=== PATIENT | female | born 1960 | race Caucasian/White ===

== ENCOUNTER 2021-04-24 18:05 | Inpatient (IN) ==
[2021-04-24 18:47] LABS: Amorphous Sediment,Urine Few per hpf (None-Few); Bilirubin,Urine Negative (Negative); Blood,Urine Negative (Negative); Clarity,Urine Clear (Clear); Color,Urine Light-Yellow (Yellow); Glucose,Urine (UA) Normal (Normal); Ketones,Urine Negative (Negative); Leukocyte Esterase,Urine Negative (Negative); Nitrite,Urine Negative (Negative); Protein,Urine 30 mg/dL (Neg-Trace); RBC,Urine 0-3 per hpf (0-3); Specific Gravity,Urine 1.026 (1.010-1.025); Squamous Epithelial Cell,Urine Few per hpf (None-Few)
[2021-04-24] MEDS ORDERED: Isovue-370 500 ML BOTTLE IVP ONE (20:49)
[2021-04-24] MEDS ORDERED: Ketorolac 30 MG/ML VIAL IVP ONE (20:49)
[2021-04-24 21:17] LABS: Basophils % 0.3 %; Eosinophils # 0.1 K/mcL (0.0-0.6); Eosinophils % 1.1 %; Hematocrit 38.3 % (35.3-44.9); Hemoglobin 12.1 g/dL (11.5-15.4); Immature Granulocytes % 0.2 % (0-4); Lymphocytes # 2.1 K/mcL (0.6-4.6); Lymphocytes % 23.3 %; Mean Corpuscular HGB Conc 31.6 g/dL (31.6-35.5); Mean Corpuscular Hemoglobin 29.4 pg (28.0-33.3); Mean Platelet Volume 9.2 fL (9.4-12.4); Monocytes # 0.6 K/mcL (0.0-1.3); Neutrophils # 6.2 K/mcL (1.6-8.9); Platelet Count 304 K/mcL (140-400); Red Blood Count 4.12 M/mcL (3.82-4.97); Red Cell Distribution Width 11.4 % (11.5-14.5); Segmented Neutrophils % 68.1 %; White Blood Count 9.1 K/mcL (4.3-11.1)
[2021-04-24 21:38] LABS: Calcium 9.4 mg/dL (8.6-10.3); Potassium 4.1 mEq/L (3.5-5.1)
[2021-04-24 22:01] LABS: Influenza A PCR Negative (Negative); Influenza B PCR Negative (Negative); Resp. Syncytial Virus PCR Negative (Negative)
[2021-04-24 22:07] LABS: SARS-CoV-2 by PCR (In House) Positive (Negative)
[2021-04-24] MEDS ORDERED: 0.9 % Sodium Chloride 500 ML IVC ONE (23:15)
[2021-04-25] MEDS ORDERED: Melatonin 3 MG TABLET PO PRN (00:38)
[2021-04-25] MEDS ORDERED: Naloxone 0.4 MG/ML INJ IVP PRN (00:38)
[2021-04-25] MEDS ORDERED: Ondansetron 4 MG/2 ML VIAL IVP PRN (00:38)
[2021-04-25] MEDS ORDERED: Acetaminophen 325 MG TABLET PO PRN (00:38)
[2021-04-25 01:56] LABS: Basophils % 0.2 %; Eosinophils # 0.1 K/mcL (0.0-0.6); Eosinophils % 1.5 %; Hematocrit 34.1 % (35.3-44.9); Hemoglobin 10.6 g/dL (11.5-15.4); Immature Granulocytes % 0.4 % (0-4); Lymphocytes # 2.4 K/mcL (0.6-4.6); Lymphocytes % 29.5 %; Mean Corpuscular HGB Conc 31.1 g/dL (31.6-35.5); Mean Corpuscular Hemoglobin 29.1 pg (28.0-33.3); Mean Corpuscular Volume 93.7 fL (83.0-100.0); Mean Platelet Volume 9.4 fL (9.4-12.4); Monocytes # 0.7 K/mcL (0.0-1.3); Monocytes % 8.4 %; Neutrophils # 4.9 K/mcL (1.6-8.9); Platelet Count 255 K/mcL (140-400); Red Blood Count 3.64 M/mcL (3.82-4.97); Red Cell Distribution Width 11.6 % (11.5-14.5); White Blood Count 8.2 K/mcL (4.3-11.1)
[2021-04-25 02:19] LABS: Albumin 3.5 g/dL (3.5-5.7); Albumin/Globulin Ratio 1.3 (1.1-2.2); Bilirubin,Total 0.4 mg/dL (0.3-1.0); Calcium 8.7 mg/dL (8.6-10.3); Globulin 2.7 g/dL (2.4-3.5); Magnesium 2.1 mg/dL (1.6-2.6); Phosphorous 3.2 mg/dL (2.7-4.5); Potassium 4.2 mEq/L (3.5-5.1); Total Protein 6.2 g/dL (6.4-8.9)
[2021-04-25] MEDS ORDERED: 0.9 % Sodium Chloride 1,000 ML IVC ONE (03:29)
[2021-04-25 09:12] LABS: INR 1.3; Prothrombin Time 14.7 Seconds (9.4-12.1)
[2021-04-25 09:14] LABS: Activated Partial Thrombo Time 30.5 Seconds (26.0-36.0)
[2021-04-25] MEDS: Topiramate 100 MG TABLET PO SCH ×2 (12:27→20:20)
[2021-04-25] MEDS: 0.9 % Sodium Chloride 1,000 ML IVC SCH ×2 (12:45→20:21)
[2021-04-25] MEDS: traZODone 50 MG TABLET PO SCH (20:19)
[2021-04-26 01:58] LABS: Hematocrit 34.5 % (35.3-44.9); Hemoglobin 10.5 g/dL (11.5-15.4); Mean Corpuscular HGB Conc 30.4 g/dL (31.6-35.5); Mean Corpuscular Hemoglobin 28.8 pg (28.0-33.3); Mean Corpuscular Volume 94.8 fL (83.0-100.0); Mean Platelet Volume 9.1 fL (9.4-12.4); Platelet Count 275 K/mcL (140-400); Red Blood Count 3.64 M/mcL (3.82-4.97); Red Cell Distribution Width 11.2 % (11.5-14.5); White Blood Count 6.3 K/mcL (4.3-11.1)
[2021-04-26 02:13] LABS: Calcium 8.7 mg/dL (8.6-10.3); Potassium 4.4 mEq/L (3.5-5.1)
[2021-04-26] MEDS ORDERED: 0.9 % Sodium Chloride 500 ML ONE (07:22)
[2021-04-26] MEDS ORDERED: Gadolinium Contrast Agent (WT Based) IV PRN (07:44)
[2021-04-26] MEDS: traZODone 50 MG TABLET PO SCH ×2 (09:04→20:42)
[2021-04-26] MEDS: Topiramate 100 MG TABLET PO SCH ×2 (09:04→20:42)
[2021-04-26] MEDS ORDERED: *HR* Midazolam HCl 2 MG/2 ML VIAL ONE (09:58)
[2021-04-26] MEDS ORDERED: *HR* Midazolam HCl 2 MG/2 ML VIAL IVP ONE (09:58)
[2021-04-26] MEDS ORDERED: *HR* FentaNYL (PF) 100 MCG/2 ML VIAL ONE (09:58)
[2021-04-26] MEDS ORDERED: *HR* FentaNYL (PF) 100 MCG/2 ML VIAL IVP ONE (09:58)
[2021-04-26] MEDS ORDERED: Ampicillin/Sulbactam 1,500 MG in 0.9 % Sodium Chloride Mini Bag 100 ML IVPB ONE (10:01)
[2021-04-26 14:22] LABS: Bacteria,Urine Few per hpf (None-Few); Bilirubin,Urine Negative (Negative); Blood,Urine Large (Negative); Clarity,Urine Turbid (Clear); Color,Urine Brown (Yellow); Glucose,Urine (UA) Normal (Normal); Ketones,Urine Negative (Negative); Leukocyte Esterase,Urine Large (Negative); Mucus,Urine Few per lpf (None-Few); Nitrite,Urine Negative (Negative); Protein,Urine 200 mg/dL (Neg-Trace); RBC,Urine TNTC per hpf (0-3); Specific Gravity,Urine 1.007 (1.010-1.025); Urobilinogen,Urine Normal (Normal); WBC,Urine TNTC per hpf (0-3)
[2021-04-26] MEDS ORDERED: BuPROPion SR (12 HR) 150 MG TABLET PO SCH (16:00)
[2021-04-26] MEDS: cefTRIAXone 1,000 MG in 0.9 % Sodium Chloride Mini Bag 100 ML IVP SCH (17:28)
[2021-04-26] MEDS: *HR* OxyCODONE/APAP 7.5/325 TABLET PO PRN ×2 (18:23→22:48)
[2021-04-26] MEDS: 0.9 % Sodium Chloride 1,000 ML IVC SCH (20:47)
[2021-04-27 03:34] VITALS: TEMP 99.4
[2021-04-27] MEDS: 0.9 % Sodium Chloride 1,000 ML IVC SCH (06:28)
[2021-04-27] MEDS: *HR* OxyCODONE/APAP 7.5/325 TABLET PO PRN ×2 (06:34→12:50)
[2021-04-27 07:33] LABS: Hematocrit 31.8 % (35.3-44.9); Hemoglobin 9.9 g/dL (11.5-15.4); Mean Corpuscular HGB Conc 31.1 g/dL (31.6-35.5); Mean Corpuscular Hemoglobin 29.5 pg (28.0-33.3); Mean Corpuscular Volume 94.6 fL (83.0-100.0); Mean Platelet Volume 9.5 fL (9.4-12.4); Platelet Count 247 K/mcL (140-400); Red Blood Count 3.36 M/mcL (3.82-4.97); Red Cell Distribution Width 11.5 % (11.5-14.5); White Blood Count 6.7 K/mcL (4.3-11.1)
[2021-04-27 07:52] VITALS: BP 116/73; PULSE 62; O2SAT 98
[2021-04-27 07:56] LABS: Calcium 8.7 mg/dL (8.6-10.3)
[2021-04-27] MEDS ORDERED: Topiramate 100 MG TABLET PO SCH (09:00)
[2021-04-27] MEDS ORDERED: BuPROPion SR (12 HR) 150 MG TABLET PO SCH (09:00)
[2021-04-27] MEDS: Topiramate 100 MG TABLET PO SCH (09:41)
[2021-04-27] MEDS: traZODone 50 MG TABLET PO SCH (09:42)
[2021-04-27] MEDS: cefTRIAXone 1,000 MG in 0.9 % Sodium Chloride Mini Bag 100 ML IVP SCH (09:42)
== END 2021-04-27 15:20 | disposition home or self-care (01) | DRG 689 ==
LOC: EMEROOARM 18:05 → 3ANU 18:05 → INTOOBSV 04-25 00:09 → SUATTDRO 04-25 00:09 → OBSVTOIN 04-25 00:09 → 3ANU 04-25 00:35
PROVIDERS: ADMIT Internal Medicine; ATTEND Internal Medicine